=== PATIENT | male | born 1985 | race Two or more races ===

== ENCOUNTER 2016-07-29 21:31 | Emergency (ER) | payer OTHER ==
[~2016-07-29] VITALS: Ht 177.8 cm; Wt 70.3 kg
[2016-07-29] MEDS ORDERED: SODIUM CHLORIDE 0.9% 1,000 ML IV ONE (22:44)
[2016-07-29] MEDS ORDERED: ALBUTEROL SULF 2.5 MG/0.5ML(0.5%) NEB SOLN NEB ONE (22:45)
[2016-07-29] MEDS ORDERED: IPRATROPIUM BROM 0.5 MG/2.5ML INH SOL NEB ONE (22:45)
[2016-07-29 22:51] VITALS: BP 152/101
[2016-07-29 23:42] LABS: Basophils # (auto) 0.3 uL; Basophils % (auto) 2.6 % (0.0-2.0); Eosinophils # (auto) 0.1 uL; Eosinophils % (auto) 0.6 % (0.0-7.0); Hematocrit 47.1 % (41.0-53.0); Hemoglobin 15.6 g/dL (13.5-17.5); Lymphocytes % (auto) 20.6 % (10.0-50.0); Mean Corpuscular Hemoglobin 30.1 pg (28.0-32.0); Mean Corpuscular Volume 91.1 fL (80.0-100.0); Mean Platelet Volume 8.5 fL (7.4-10.4); Monocytes # (auto) 0.6 uL; Monocytes % (auto) 6.3 % (0.0-12.0); Neutrophils # (auto) 6.8 uL; Neutrophils % (auto) 69.9 % (37.0-80.0); Platelet Count (auto) 284 10^3/uL (140-450); Red Cell Distribution Width 12.1 % (11.6-16.0); White Blood Cell 9.8 10^3/uL (4.4-10.8)
[2016-07-30] LABS: Albumin 3.8 g/dL (3.4-5.0); Calcium 8.4 mg/dL (8.5-10.1); Potassium 3.9 mmol/L (3.5-5.1)
[2016-07-30 00:03] LABS: Bilirubin, Total 0.3 mg/dL (0.2-1.0); Total Protein 7.4 g/dL (6.4-8.2)
[2016-07-30] MEDS ORDERED: LORazepam 2MG/ML-1ML VIAL IV ONE (00:30)
== END 2016-07-30 00:49 | disposition home or self-care (01) ==
LOC: EDBD 21:31 → ER 21:33
DX: G40.909 Epilepsy, unspecified, not intractable, without status epilepticus (principal); J70.5 Respiratory conditions due to smoke inhalation
CPT/HCPCS: 36415; 70450; 71010; 80053; 82542; 84484; 85025; 85049; 94640; 96361; 96374; 99285; J2060; J7030

== ENCOUNTER 2017-07-12 15:32 | Emergency (ER) | payer OTHER ==
[~2017-07-12] VITALS: Ht 177.8 cm; Wt 83.9 kg
[2017-07-12 16:08] VITALS: BP 135/91
== END 2017-07-12 17:33 | disposition home or self-care (01) ==
LOC: ER 15:45
DX: S61.532A Puncture wound without foreign body of left wrist, initial encounter (principal); W26.0XXA Contact with knife, initial encounter; Y93.89 Activity, other specified; Y92.89 Other specified places as the place of occurrence of the external cause; Y99.8 Other external cause status
CPT/HCPCS: 73100

== ENCOUNTER 2020-09-04 16:27 | Emergency (ER) | payer OTHER ==
[~2020-09-04] VITALS: Ht 177.8 cm; Wt 70.3 kg
[2020-09-04 16:29] VITALS: BP 138/95
== END 2020-09-04 17:39 | disposition home or self-care (01) ==
LOC: ER 16:27
DX: S01.511A Laceration without foreign body of lip, initial encounter (principal); F41.9 Anxiety disorder, unspecified; F32.9 Major depressive disorder, single episode, unspecified; Y08.89XA Assault by other specified means, initial encounter; Y93.89 Activity, other specified; Y92.89 Other specified places as the place of occurrence of the external cause; Y99.8 Other external cause status
CPT/HCPCS: 70450; 70486